=== PATIENT | male | born 1990 | race Caucasian/White ===

== ENCOUNTER 2019-06-13 16:33 | Emergency (ER) | payer OTHER ==
[~2019-06-13] VITALS: Ht 188 cm; Wt 79.4 kg
[~2019-06-13 16:33] MED LIST: FLEXERIL PO; ULTRAM 50MG TAB50 MG PO
[2019-06-13 17:16] LABS: ABSOLUTE BASOPHILS 0.1 thou/uL (0.0-0.2); ABSOLUTE EOSINOPHILS 0.1 thou/uL (0.0-0.7); ABSOLUTE LYMPHOCYTES 1.4 thou/uL (0.8-5.3); ABSOLUTE MONOCYTES 0.8 thou/uL (0.0-1.2); ABSOLUTE NEUTROPHILS 5.5 thou/uL (1.6-8.1); BASOPHILS 0.7 %; EOSINOPHILS 0.8 %; HEMATOCRIT 45.3 % (42.0-52.0); HEMOGLOBIN 15.8 gm/dL (14.0-18.0); LYMPHOCYTES 18.3 %; MCHC 34.9 g/dL (28.0-37.0); MCV 91.7 fL (80.0-100.0); MONOCYTES 9.9 %; MPV 8.7 fl. (7.2-11.1); NUCLEATED RBCS 0 /100WBC; PLATELET COUNT* 219 thou/uL (150-400); POLYS 70.3 %; RBC 4.94 mil/uL (4.50-6.00); RDW-CV 13.8 % (10.5-14.5); WBC 7.9 thou/uL (4.0-11.0)
[2019-06-13 17:23] LABS: CALCIUM 9.5 mg/dL (8.5-10.1); CREATININE 1.1 mg/dL (0.6-1.3); POTASSIUM 3.4 mmol/L (3.5-5.1)
[2019-06-13 17:28] LABS: ALBUMIN 4.1 g/dL (3.4-5.0); TOTAL BILIRUBIN 0.7 mg/dL (<0.1-1.0); TOTAL PROTEIN 7.5 g/dL (6.4-8.2)
[2019-06-13 18:07] LABS: URINE BILIRUBIN NEGATIVE (Negative); URINE BLOOD 3+ (Negative); URINE CLARITY CLEAR; URINE COLOR YELLOW; URINE GLUCOSE-RANDOM NEGATIVE (Negative); URINE KETONES NEGATIVE (Negative); URINE LEUKOCYTES-REFLEX NEGATIVE (Negative); URINE NITRITE-REFLEX NEGATIVE (Negative); URINE PROTEIN TRACE (Negative); URINE UROBILINOGEN 0.2 E.U./dl (0.2-1.0)
[2019-06-13 18:14] LABS: SQUAMOUS 0-3 Few /LPF (0-3)
[2019-06-13 18:15] LABS: MUCUS >6 Heavy strn/LPF (None Seen); URINE RBC >20 Many /HPF (0-2); URINE WBC-REFLEX 0-5 Rare /HPF (0-5)
[2019-06-13 18:16] LABS: CRYSTALS None Seen /LPF (None Seen); FINE GRANULAR CASTS 0-3 Few /LPF (None Seen); HYALINE CASTS 4-10 Moderate /LPF (None Seen)
[2019-06-13] MEDS ORDERED: NORCO 5-325 TA1 EAC1 PO (18:24)
[2019-06-13] MEDS ORDERED: DOXYCYCLINE 10100 MG PO (18:24)
[2019-06-13 18:27] VITALS: BP 134/77
== END 2019-06-13 18:28 | disposition home or self-care (01) ==
LOC: M.ERS 16:33
PROVIDERS: Emergency Medicine Emergency Medical Services
DX: R10.32 Left lower quadrant pain (principal); F17.210 Nicotine dependence, cigarettes, uncomplicated

== ENCOUNTER 2020-07-04 19:48 | Emergency (ER) | payer OTHER ==
[~2020-07-04] VITALS: Ht 188 cm; Wt 79.4 kg
[~2020-07-04 19:48] MED LIST changes: +DOXYCYCLINE 10100 MG PO; +NORCO 5-325 TA1 EAC1 PO
[2020-07-04 20:04] VITALS: BP 121/70
[2020-07-04] MEDS ORDERED: AUGMENTIN 875-1 EACH PO (20:22)
== END 2020-07-04 20:38 | disposition home or self-care (01) ==
LOC: M.ERS 19:48
DX: L03.115 Cellulitis of right lower limb (principal); F19.10 Other psychoactive substance abuse, uncomplicated